=== PATIENT | female | born 1985 | race Caucasian/White ===

== ENCOUNTER 2023-09-07 20:59 | Emergency (ER) | payer OTHER ==
[2023-09-07] MEDS ORDERED: NA CHLORIDE 0.9% 1,000 ML ONE (22:32)
[2023-09-07 22:40] LABS: Absolute Basophils 0.1 K/uL (0-0.5); Absolute Eosinophils 0.2 K/uL (0-0.5); Absolute Lymphocytes (CBC) 2.8 K/uL (0.7-4.9); Absolute Monocytes 0.9 K/uL (0.1-1.3); Absolute Neutrophil 8.1 K/uL (1.8-8.0); Basophils % 0.7 % (0-1.3); Eosinophils % 1.8 % (0-4.4); Hematocrit 35.6 % (36.0-45.0); Hemoglobin 11.7 g/dL (12.0-15.0); MCV 84.7 fL (80-100); MPV 8.3 fL (7.6-11.3); Monocytes % 7.6 % (3.3-12.3); Neutrophils % 66.9 % (41.7-73.7); Nucleated Red Blood Cells % 0.2 % (0-0); Platelets 297 thou/uL (152-406); Red Cell Distribution Width 13.9 % (12.1-15.2)
[2023-09-07 22:51] LABS: PT Prothrombin Time 11.8 SECONDS (9.5-12.5); PTT, Activated Partial Thromb 34.9 SECONDS (24.3-36.9); Protime INR 1.07
[2023-09-07 22:59] LABS: Albumin 3.7 g/dL (3.4-5.0); Albumin/Globulin Ratio 0.9 (1.1-1.8); Anion Gap 8.5 mEq/L (5.0-15.0); Bilirubin Total 0.6 mg/dL (0.2-1.0); Globulin 3.9 g/dL (2.3-3.5); Potassium 3.5 mEq/L (3.5-5.1); Protein, Total 7.6 g/dL (6.4-8.2)
[2023-09-07 23:05] LABS: Specific Gravity 1.014 (1.005-1.030); Sqamous Epithelial <5 /HPF (None Seen); Urine Bacteria None Seen /HPF (<20); Urine Bilirubin NEGATIVE (Negative); Urine Blood Negative (Negative); Urine Clarity Clear (Clear); Urine Color Light-Yellow (Yellow); Urine Culture Reflex Order NOT NEEDED; Urine Glucose NEGATIVE (Negative); Urine Ketones NEGATIVE (Negative); Urine Microscopic Reflex YN ORDER UMIC; Urine Mucus Slight /HPF (None Seen); Urine Nitrite NEGATIVE (Negative); Urine Protein NEGATIVE (Negative); Urine RBC <5 /HPF (None Seen); Urine Urobilinogen Normal (Normal); Urine WBC <5 /HPF (<5); Urine pH 5.5 (5.0-7.0)
[2023-09-08] MEDS ORDERED: KETOROLAC 30 MG/ML INJ ONE (00:01)
[2023-09-08] MEDS ORDERED: CEFTRIAXONE 1000 MG/VIAL ONE (02:53)
[2023-09-08] MEDS ORDERED: METRONIDAZOLE 500mg IVPB 500 MG/100 ML BAG IV ONE (02:53)
--- NOTE | 2023-09-08 04:03 | EDPHYS ---
Physician Documentation [facility] Name: Evelyne Barros Age: 38 yrs Sex: Female : 1985 Arrival Date: 09/07/2023 Time: 20:59 Bed 7 Private MD: ED Physician Thor Baxter HPI: 09/06 23:12 This 38 yrs old Female presents to ER via Ambulatory with complaints of Abdominal Pain. sb4 23:12 Patient reports abdominal pain that began yesterday. States that it started more mid sb4 lower but now it has migrated to her right lower quadrant. She denies any urinary symptoms, vaginal bleeding, nausea, vomiting, fever, chills. DEPOSITION REPORTER: 09/07 00:53 Not km8 Historical: - Allergies: 09/06 21:16 Aleve; ha1 - Immunization history:: Adult Immunizations up to date. - Infectious Disease History:: Denies. - Social history:: Smoking status: Patient denies any tobacco usage or history of. ROS: 23:12 Constitutional: Negative for fever, chills, and weight loss, sb4 23:12 Abdomen/GI: Positive for abdominal pain, 23:12 All other systems are negative, Exam: 23:12 Head/Face: Normocephalic, atraumatic. Eyes: Extra-ocular motions intact. Periorbital sb4 areas with no swelling, redness, or edema. ENT: Mucous membranes moist. Cardiovascular: Regular rate and rhythm with a normal S1 and S2. Respiratory: Lungs have equal breath sounds bilaterally, clear to auscultation and percussion. No rales, rhonchi or wheezes noted. No increased work of breathing, no retractions or nasal flaring. 23:12 Constitutional: The patient appears alert, awake, crying 23:12 Abdomen/GI: Inspection: obese Bowel sounds: normal, Palpation: soft, mild abdominal tenderness, in the right lower quadrant, Vital Signs: 21:12 BP 150 / 96; Pulse 103; Resp 15 S; Temp 99.6; Pulse Ox 100% on R/A; Weight 113.4 kg; ha1 22:53 BP 123 / 72; Pulse 90; Resp 18; Pulse Ox 98% on R/A; Pain 8/10; tl4 09/07 00:03 BP 135 / 77; Pulse 90; Resp 18; Pulse Ox 100% on R/A; Pain 8/10; tl4 00:30 BP 119 / 67; Pulse 90; Resp 16; Pulse Ox 98% on R/A; km8 01:18 BP 116 / 73; Pulse 83; Resp 16 S; Pulse Ox 97% on R/A; ha1 01:45 BP 115 / 70; Pulse 86; Resp 16; Pulse Ox 100% on R/A; km8 02:47 BP 116 / 69; Pulse 81; Resp 17 S; Pulse Ox 98% on R/A; ha1 03:00 BP 116 / 65; Pulse 80; Resp 16; Pulse Ox 97% on R/A; km8 03:30 BP 111 / 71; Pulse 80; Resp 16; Pulse Ox 96% on R/A; km8 04:00 BP 115 / 74; Pulse 74; Resp 16; Pulse Ox 100% ; km8 22:53 Pain Scale: Adult tl4 09/07 00:03 Pain Scale: Adult tl4 MDM: 09/06 21:11 Patient medically screened. 4 23:12 Differential diagnosis: appendicitis, Ectopic , Endometriosis, non-specific sb4 abd pain, Pyelonephritis, Ureterolithiasis, urinary tract infection, ovarian cyst. 09/07 04:05 Data reviewed: vital signs, nurses notes, lab test result(s), radiologic studies, CT cp scan, ultrasound, and as a result, I will discharge patient. 09/06 21:21 Order name: CBC with Diff; Complete Time: 22:48 [facility] 09/07 04:00 Interpretation: Normal except: WBC 12.10; HGB 11.7; HCT 35.6; NEUT A 8.1. cp 09/06 21:21 Order name: CMP; Complete Time: 22:59 [facility] 09/07 04:01 Interpretation: Normal except: NA 135; GFR 74; AST 10; GLOB 3.9; A/G 0.9. cp 09/06 21:21 Order name: Lipase; Complete Time: 22:59 [facility] 09/06 21:21 Order name: Test, Urine; Complete Time: 23:06 [facility] 09/06 21:21 Order name: Urinalysis w/ reflexes; Complete Time: 23:06 [facility] 09/06 21:21 Order name: Blood Culture Adult (2) [facility] 05/02 21:21 Order name: Lactate w/ 2H reflex if indic.; Complete Time: 22:59 sb4 09/06 21:21 Order name: Protime (+inr); Complete Time: 22:54 sb4 09/06 21:21 Order name: Ptt, Activated; Complete Time: 22:54 sb4 09/06 21:21 Order name: Test, Serum; Complete Time: 22:54 sb4 09/06 21:21 Order name: CT Abd/Pelvis - IV Contrast Only 4 09/07 01:25 Order name: Transvaginal Study (probe) 4 09/06 21:21 Order name: IV Saline Lock; Complete Time: 22:40 sb4 09/06 21:21 Order name: Labs collected and sent; Complete Time: 22:40 sb4 Administered Medications: 09/06 22:51 Drug: NS 0.9% IV 1000 ml IV at 1 bolus Per protocol; 1000 mL bolus {Note: via IV pump.} tl4 Route: IV; Rate: 1 bolus; Site: left antecubital; 09/07 01:18 Follow up: Response: No adverse reaction; IV Status: Completed infusion; IV Intake: ha1 1000ml 00:08 Drug: Ketorolac IVP 30 mg IVP once Route: IVP; Site: left antecubital; ha1 01:00 Follow up: Response: No adverse reaction; Pain is decreased ha1 02:50 Drug: Rocephin IV 1 grams IV at calculated rate once; Given slow IV push per pharmacy ha1 instructions Route: IV; Rate: calculated rate; Site: left antecubital; 03:00 Follow up: IV Status: Completed infusion; IV Intake: 10ml km8 03:02 Drug: metroNIDAZOLE IVPB 500 mg 100 ml IVPB once over 30 mins Volume: 100 ml; Route: ha1 IVPB; Infused Over: 30 mins; Site: left antecubital; 03:35 Follow up: IV Status: Completed infusion; IV Intake: 100ml km8 04:00 Drug: AZITHromycin PO 1 grams PO once Route: PO; ha1 04:16 Follow up: Response: No adverse reaction ha1 Disposition Summary: 09/08/23 04:03 Discharge Ordered Notes: Location: Home cp Problem: new cp Symptoms: have improved cp Condition: Stable cp Diagnosis - Right Side Hydrosalpinx cp - Female pelvic inflammatory disease, unspecified cp Followup: cp - With: Private Physician - When: 2 - 3 days - Reason: Recheck today's complaints Discharge Instructions: - Discharge Summary Sheet cp - Pelvic Inflammatory Disease cp Forms: - Medication Reconciliation Form cp - Antibiotic Education cp - Prescription Opioid Use cp - Patient Portal Instructions cp - Leadership Thank You Letter cp Prescriptions: - Ibuprofen 800 mg Oral Tablet - take 1 tablet ORAL route every 8 hours As needed take with food; 30 tablet; cp Refills: 0, Product Selection Permitted - Doxycycline Hyclate 100 mg Oral tablet - take 1 tablet ORAL route every 12 hours; 28 tablet; Refills: 0, Product cp Selection Permitted - Metronidazole 500 mg Oral tablet - take 1 tablet ORAL route every 8 hours; 42 tablet; Refills: 0, Product cp Selection Permitted - Tramadol 50 mg Oral Tablet - take 1 tablet ORAL route every 8 hours as needed; 12 tablet; Refills: 0, cp Product Selection Permitted Signatures: Dispatcher [employer] EDThor Elliott PA PA cp Ayala, Heidy RN RN ha1 Thelma Garcia PA-C PAAlexander sb4 Nader Pineda RN RN tl4 Tiny Marie RN km8
--- NOTE | 2023-09-08 04:03 | ER ---
Nurse's Notes [facility] Name: Evelyne Barros Age: 38 yrs Sex: Female : 1985 Arrival Date: 09/07/2023 Time: 20:59 Bed 7 Private MD: Diagnosis: Right Side Hydrosalpinx;Female pelvic inflammatory disease, unspecified Presentation: 09/06 21:12 Chief complaint: Patient states: right lower quadrant pain and nausea. pain started ha1 yesterday. Coronavirus screen: Vaccine status: Patient reports receiving the 2nd dose of the covid vaccine. [employer]. Ebola Screen: No symptoms or risks identified at this time. Initial Sepsis Screen: Does the patient meet any 2 criteria? No. Patient's initial sepsis screen is negative. Does the patient have a suspected source of infection? No. Patient's initial sepsis screen is negative. Risk Assessment: Do you want to hurt yourself or someone else? Patient reports no desire to harm self or others. Onset of symptoms was September 07, 2023. 21:12 Method Of Arrival: Ambulatory ha1 21:12 Acuity: JHOANA 3 ha1 Triage Assessment: 21:16 General: Appears uncomfortable, Behavior is calm, cooperative. Pain: Complains of pain ha1 in right lower quadrant Pain does not radiate. Pain currently is 7 out of 10 on a pain scale. Quality of pain is described as crampy, throbbing. Neuro: Level of Consciousness is awake, alert, obeys commands, Oriented to person, place, time, situation. Cardiovascular: Capillary refill < 3 seconds Patient's skin is warm and dry. Respiratory: Airway Respiratory effort is even, unlabored, Respiratory pattern is regular, symmetrical. GI: Abdomen is round non-distended, obese, Bowel sounds present X 4 quads. Derm: Skin is pink, warm \T\ dry. COMPLIANCE LEAD: 09/07 00:53 Not km8 Historical: - Allergies: 09/06 21:16 Aleve; ha1 - Immunization history:: Adult Immunizations up to date. - Infectious Disease History:: Denies. - Social history:: Smoking status: Patient denies any tobacco usage or history of. Screenin:[facility] ED Fall Risk Assessment (Adult) History of falling in the last 3 months, tl4 including since admission No falls in past 3 months (0 pts) Confusion or Disorientation No (0 pts) Intoxicated or Sedated No (0 pts) Impaired Gait No (0 pts) Mobility Assist Device Used No (0 pt) Altered Elimination No (0 pt) Score/Fall Risk Level 0 - 2 = Low Risk Oriented to surroundings, Maintained a safe environment, Educated pt \T\ family on fall prevention, incl call for assistance when getting out of bed, Assessed \T\ reinforced patient's understanding of fall precautions. Abuse screen: Denies threats or abuse. Denies injuries from another. Nutritional screening: No deficits noted. Tuberculosis screening: No symptoms or risk factors identified. Assessment: 22:51 General: Appears in no apparent distress. Behavior is calm, cooperative. Pain: tl4 Complains of pain in abdomen. Neuro: Level of Consciousness is awake, alert, obeys commands, Oriented to person, place, time, situation, Moves all extremities. Full function Gait is steady, Speech is normal. Cardiovascular: Capillary refill < 3 seconds Patient's skin is warm and dry. Respiratory: Airway is patent Respiratory effort is even, unlabored, Respiratory pattern is regular, symmetrical, Breath sounds are clear bilaterally. GI: Abd is soft Abdomen is tender to palpation in right lower quadrant and left lower quadrant Reports lower abdominal pain. : No signs and/or symptoms were reported regarding the genitourinary system. EENT: No signs and/or symptoms were reported regarding the EENT system. Derm: No signs and/or symptoms reported regarding the dermatologic system. Musculoskeletal: No signs and/or symptoms reported regarding the musculoskeletal system. 09/07 00:03 Reassessment: Patient and/or family updated on plan of care and expected duration. Pain tl4 level reassessed. Patient is alert, oriented x 3, equal unlabored respirations, skin warm/dry/pink. Pt c/o pain. Provider aware. 01:00 Reassessment: Patient and/or family updated on plan of care and expected duration. Pain ha1 level reassessed. Patient is alert, oriented x 3, equal unlabored respirations, skin warm/dry/pink. pain 2/10 Patient states feeling better. Patient states symptoms have improved. 01:58 Reassessment: ultrasound at bedside. km8 02:00 Reassessment: Patient and/or family updated on plan of care and expected duration. Pain ha1 level reassessed. Patient is alert, oriented x 3, equal unlabored respirations, skin warm/dry/pink. 03:00 Reassessment: Patient appears in no apparent distress at this time. No changes from km8 previously documented assessment. Patient and/or family updated on plan of care and expected duration. Pain level reassessed. Patient is alert, oriented x 3, equal unlabored respirations, skin warm/dry/pink. 04:00 Reassessment: Patient appears in no apparent distress at this time. No changes from km8 previously documented assessment. Patient and/or family updated on plan of care and expected duration. Pain level reassessed. Patient is alert, oriented x 3, equal unlabored respirations, skin warm/dry/pink. Vital Signs: 09/06 21:12 BP 150 / 96; Pulse 103; Resp 15 S; Temp 99.6; Pulse Ox 100% on R/A; Weight 113.4 kg; ha1 22:53 BP 123 / 72; Pulse 90; Resp 18; Pulse Ox 98% on R/A; Pain 8/10; tl4 09/07 00:03 BP 135 / 77; Pulse 90; Resp 18; Pulse Ox 100% on R/A; Pain 8/10; tl4 00:30 BP 119 / 67; Pulse 90; Resp 16; Pulse Ox 98% on R/A; km8 01:18 BP 116 / 73; Pulse 83; Resp 16 S; Pulse Ox 97% on R/A; ha1 01:45 BP 115 / 70; Pulse 86; Resp 16; Pulse Ox 100% on R/A; km8 02:47 BP 116 / 69; Pulse 81; Resp 17 S; Pulse Ox 98% on R/A; ha1 03:00 BP 116 / 65; Pulse 80; Resp 16; Pulse Ox 97% on R/A; km8 03:30 BP 111 / 71; Pulse 80; Resp 16; Pulse Ox 96% on R/A; km8 04:00 BP 115 / 74; Pulse 74; Resp 16; Pulse Ox 100% ; km8 22:53 Pain Scale: Adult tl4 09/07 00:03 Pain Scale: Adult tl4 ED Course: 09/06 21:02 Patient arrived in ED. ra3 21:10 Thelma Garcia PA-C is PHCP. sb4 21:10 Thor Baxter MD is Attending Physician. sb4 21:16 Triage completed. ha1 22:30 Initial lab(s) drawn, by ED staff, sent to lab. First set of blood cultures drawn by ED tl4 staff. 22:40 Test, Serum Sent. tl4 22:40 Lactate w/ 2H reflex if indic. Sent. tl4 22:40 Blood Culture Adult (2) Sent. tl4 22:40 Protime (+inr) Sent. tl4 22:40 Ptt, Activated Sent. tl4 22:40 CBC with Diff Sent. tl4 22:40 CMP Sent. tl4 22:40 Lipase Sent. tl4 22:41 Second set of blood cultures drawn Urine collected: clean catch specimen, clear. tl4 22:51 Test, Urine Sent. tl4 22:51 Urinalysis w/ reflexes Sent. tl4 22:55 No provider procedures requiring assistance completed. Inserted saline lock: 22 gauge tl4 in left antecubital area, using aseptic technique. Blood collected. 22:55 Patient has correct armband on for positive identification. Placed in gown. Bed in low tl4 position. Call light in reach. Side rails up X 1. Adult w/ patient. Provided Education on: ED process. Client placed on continuous cardiac and pulse oximetry monitoring. NIBP monitoring applied. Door closed. Noise minimized. Moved to private room. 23:41 CT Abd/Pelvis - IV Contrast Only In Process Unspecified. EDMS 09/07 00:16 Tiny Marie, VINOD is Primary Nurse. km8 00:16 Arm band placed on right wrist. km8 01:46 PHCP role handed off by Thelma Garcia PA-C cp 01:46 Thor Arizmendi PA is PHCP. cp 02:22 Transvaginal Study (probe) In Process Unspecified. EDMS 04:18 IV discontinued, intact, bleeding controlled, No redness/swelling at site. Pressure ha1 dressing applied. Administered Medications: 09/06 22:51 Drug: NS 0.9% IV 1000 ml IV at 1 bolus Per protocol; 1000 mL bolus {Note: via IV pump.} tl4 Route: IV; Rate: 1 bolus; Site: left antecubital; 09/07 01:18 Follow up: Response: No adverse reaction; IV Status: Completed infusion; IV Intake: ha1 1000ml 00:08 Drug: Ketorolac IVP 30 mg IVP once Route: IVP; Site: left antecubital; ha1 01:00 Follow up: Response: No adverse reaction; Pain is decreased ha1 02:50 Drug: Rocephin IV 1 grams IV at calculated rate once; Given slow IV push per pharmacy ha1 instructions Route: IV; Rate: calculated rate; Site: left antecubital; 03:00 Follow up: IV Status: Completed infusion; IV Intake: 10ml km8 03:02 Drug: metroNIDAZOLE IVPB 500 mg 100 ml IVPB once over 30 mins Volume: 100 ml; Route: ha1 IVPB; Infused Over: 30 mins; Site: left antecubital; 03:35 Follow up: IV Status: Completed infusion; IV Intake: 100ml km8 04:00 Drug: AZITHromycin PO 1 grams PO once Route: PO; ha1 04:16 Follow up: Response: No adverse reaction ha1 Medication: 09/06 22:53 VIS not applicable for this client. tl4 Intake: 09/07 01:18 IV: 1000ml; Total: 1000ml. 1 03:00 IV: 10ml; Total: 1010ml. km8 03:35 IV: 100ml; Total: 1110ml. km8 Outcome: 04:03 Discharge ordered by MD. cp 04:18 Discharged to home ambulatory, ha1 04:18 Condition: stable 04:18 Discharge instructions given to patient, Instructed on discharge instructions, follow up and referral plans. medication usage, Demonstrated understanding of instructions, follow-up care, medications, Prescriptions given X 4, 04:19 Patient left the ED. 1 Signatures: Dispatcher [employer] EDMS Thor Arizmendi PA PA cp Ayala, Heidy, RN RN ha1 Thelma Garcia PA-C PA-Tiny Melara RN RN km8 Nader Pineda RN RN tl4 Ana Callaway ra3
[2023-09-08] MEDS ORDERED: AZITHROMYCIN 250 MG TAB ONE (04:08)
--- NOTE | 2023-09-08 20:45 | RAD REPORT ---
EXAM DESCRIPTION: CLINICAL HISTORY: hydrosalpinx - right TECHNIQUE: Real-time transvaginal pelvic ultrasound with image documentation. Transvaginal imaging was used fo r better evaluation of the endometrium and adnexa. COMPARISON: Abdomen pelvis CT dated 09/07/2023 FINDINGS: Uterus/cervix: The uterus is anteverted and measures 9.3 x 4.8 x 4.7 cm. The endometrial stripe measures 8 mm in thickness. Nabothian cysts at the level of the cervix. No myometrial mass. Right ovary: The right ovary measures 2.4 x 1.8 x 1.3 cm. Tubular anechoic structure in the right adnexa adjacent to the ovary. Normal blood flow. Left ovary: The left ovary measures 3.1 x 2.5 x 2.8 cm. Normal blood flow. There is a 1.6 x 1.6 x 1 .1 cm anechoic/simple dominant follicle/cyst. No follow-up imaging is recommended. Reference: [employer] 2019 Mar;293(2):359-371 Free fluid: Trace free fluid in the cul-de-sac. Bladder: Empty bladder which cannot be evaluated with this probe. IMPRESSION: 1. Normal ovarian flow bilaterally without sonographic evidence for torsion. 2. Right-sided hydrosalpinx. Electronically signed by: Arron Correa MD 09/08/2023 03:47 AM CDT Due to temporary technical issues with the PACS/Fluency reporting system, reports are being signed by the in house radiologists without review as a courtesy to insure prompt reporting. The interpreting radiologist is fully responsible for the content of the report.
--- NOTE | 2023-09-08 20:52 | RAD REPORT ---
EXAM DESCRIPTION: CT Abdomen and Pelvis With Intravenous Contrast CLINICAL HISTORY: The patient is 38 years old and is Female; Abdominal pain TECHNIQUE: Axial computed tomography images of the abdomen and pelvis with intravenous contrast. S agittal and coronal reformatted images were created and reviewed. This CT exam was performed using one or more of the following dose reduction techniques: automated exposure control, adjustment of t he mA and/or kV according to patient size, and/or use of iterative reconstruction technique. COMPARISON: None FINDINGS: LUNG BASES: Unremarkable No mass. No consolidation. ABDOMEN: LIVER: Fatty infiltration of the liver. Hepatomegaly. GALLBLADDER AND BILE DUCTS: Unremarkable No calcified stones. No ductal dilation. PANCREAS: Unremarkable No mass. No ductal dilation. SPLEEN: Unremarkable No splenomegaly. ADRENALS: Unremarkable No mass. KIDNEYS AND URETERS: Unremarkable No solid mass. No hydronephrosis. STOMACH AND BOWEL: Unremarkable No obstruction. No mucosal thickening. PELVIS: APPENDIX: No findings to suggest acute appendicitis. BLADDER: Unremarkable No mass. REPRODUCTIVE: Fluid attenuating tubular structure in the right adnexa, suspicious for hydrosalpinx. ABDOMEN and PELVIS: INTRAPERITONEAL SPACE: Unremarkable No free air. No significant fluid collection. BONES/JOINTS: No acute fracture. No dislocation. SOFT TISSUES: Unremarkable VASCULATURE: Unremarkable No abdominal aortic aneurysm. LYMPH NODES: Unremarkable No enlarged lymph nodes. IMPRESSION: 1. Fluid attenuating tubular structure in the right adnexa, suspicious for hydrosalpin x. Further characterization by pelvic ultrasound recommended. 2. Otherwise no acute findings in the abdomen or pelvis. 3. Hepatic steatosis and hepatomegaly. Electronically signed by: Mike Light MD 09/08/2023 01:16 AM CDT Due to temporary technical issues with the PACS/Fluency reporting system, reports are being signed by the in house radiologists without review as a courtesy to insure prompt reporting. The interpreting radiologist is fully responsible for the content of the report.
[2023-09-09 14:32] VITALS: BP 115/74; TEMP 99.6; O2SAT 100
== END 2023-09-08 04:19 | disposition home or self-care (01) ==
LOC: ER 20:59
DX: N70.11 Chronic salpingitis (principal); N73.9 Female pelvic inflammatory disease, unspecified
CPT/HCPCS: 96365; 96361; 87040 ×2; 85025; 81001; 36415; 84703; 81025; 85610; 83605; 85730; 83690; 80053; 74177; 76830; 96375; 99284; Q9967; J7030; J0696